=== PATIENT | female | born 2005 | race Two or more races ===

== ENCOUNTER 2025-07-21 20:21 | Inpatient (IN) | payer MEDICAID ==
[~2025-07-21] VITALS: Ht 157.5 cm; Wt 55.4 kg
[2025-07-21] MEDS: IOHEXOL 300 MG/ML 100ML BOTTLE IJ ONE (00:31)
--- NOTE | 2025-07-21 20:53 | ED.PDOC ---
SOB-HPI HPI Comments 20y F presents to the ED for chief complaint of flu-like symptoms - pt states she has been having cough, congestion, headache, fever, chills, body aches, and generalized weakness and malaise for the past 4x days - pt states she took ibuprofen 2x days prior for her symptoms but has since not taken anything - pt otherwise denies sick contacts or changes to diet - pt in the ED, has noted temp of 100.9 with otherwise stable vitals - pt denies any other symptoms at this time . Patient denies . Denies bleeding from anywhere. past medical history: denies past surgical history: denies medications: denies allergies: denies social history: denies ETOH use, denies drug use, denies tobacco use, HPI: Poor Historian. REVIEW OF SYSTEMS: CONSTITUTIONAL: Denies acute: diaphoresis, chills, HEAD: Denies acute: photophobia Eyes: Denies acute: Double vision, vision loss, eye pain, eye discharge. EARS: Denies acute: tinnitus, hearing loss, ear discharge, ear pain, THROAT: Denies acute: sore throat, swelling, difficulty swallowing , pain with swallowing, change in voice. NECK: Denies acute: neck pain, neck swelling, stiff neck. HEART: Denies acute : chest pain, palpitations, LUNGS: Denies acute: SOB, wheezing, hemoptysis ABDOMEN: Denies acute: abdominal pain, Nausea, Vomiting, diarrhea, melena , hematemesis, hematochezia SKIN: Denies acute: rash, redness, lesions, itchiness. EXTREMITIES: Denies acute: calf pain, numbness, tingling, weakness, denies pain in extremity. Denies acute: Low back pain. Neuro: Denies acute: focal neurological deficit, motor or sensory focal neurological deficit, tremors, seizure like activity, confusion, dizziness, change in mental status, loss of bowel or bladder function, cauda equina like symptoms. : Denies acute: dysuria, hematuria, flank pain, increase in urinary frequency. PSYCH: Denies acute: hallucination, suicidal ideation, homicidal ideation. FEMALE: Denies acute: abnormal vaginal bleeding, foul odor, unusual discharge. PHYSICAL EXAM: General: -----mild---acute distress, awake and alert. Head: normocephalic, atraumatic. No raccoon's eyes, no dunaway sign. Neck: supple, trachea is midline, no swelling. Mild Submandibular lymphadenopathy. Throat: Normal phonation. No erythema, no exudates, no obstruction, no drooling, Eyes:, no erythema, no purulent discharge, no proptosis, no icterus. Heart: regular tachy, no significant murmur appreciated. Lungs: no apparent respiratory distress, Able to speak in full sentences. No wheezing, no rhonchi, no crackles. No stridors Clear to auscultation bilaterally. Abdomen: non tender to palpation, non distended, soft, no guarding, no rebound, + bowel sounds. Neuro: Awake, Alert, oriented to name, self, situation, follows commands GCS=15. Speech is normal. Skin: no petechia, no purpura, no cyanosis, non-pale, not jaundice. Lower extremities: --no - Pitting edema no deformity, no focal swelling, no calf TTP. Makes eye contact. moves all four extremities. Face: no apparent facial droop. Ambulating in the ED independently. No nuchal rigidity, Kernig's sign, Brudzinski's sign, no meningeal signs. ED COURSE: DISCLAIMER: This medical document was created using an electronic medical record system with voice recognition software and computerized dictation system. Although this document has been carefully reviewed, there might still be some phonetic and typographical errors. Occasional wrong-word or "sound-alike" substitutions may have occurred due to the inherent limitations of voice recognition software. These areas are purely typographical due to imperfections of the software programs and do not reflect any compromise in the patient's medical care. Please read the chart carefully and recognize, using context, where these substitutions have occurred. Chief Complaint: Flu like Time Seen by MD: 20:52 Reviewed notes: Medications, Allergies Information Source: Patient, Relative (Mother) Mode of Arrival: Ambulatory Brought in by: mother Past Medical History PAST MEDICAL HISTORY: Denies Surgical History: Denies all surgeries PRODUCTION ASSOCIATE History: Denies all PRODUCTION ASSOCIATE Hx Family History Family History: Reviewed,noncontributory to illness Social History Smoker: Non-Smoker Alcohol: Denies ETOH Use Drugs: Denies Drug Use Lives In: Home Was a procedure done? Was a procedure done?: No Differential Dx Differential Diagnosis: Pneumonia, Pulmonary Embolism, Respiratory Distress, Sinusitis, Allergic Rhinitis, URI, Other Comments Sepsis, bacteremia, viral etiology, pneumonia, UTI, X-Ray, Labs, Meds, VS Vital Signs Date Time Temp Pulse Resp B/P (MAP) Pulse Ox O2 Delivery O2 Flow Rate FiO2 07/22/25 00:59 71 20 100 Room Air 07/22/25 00:59 98.5 71 20 97/61 (73) 100 98.5 07/21/25 23:00 98.6 71 20 93/59 (70) 99 98.6 07/21/25 22:00 99.0 07/21/25 21:36 99.5 99.5 07/21/25 21:04 100.2 07/21/25 21:00 100.4 105 20 90/58 (69) 100 100.4 07/21/25 20:24 100.9 98 20 100/74 97 100.9 Lab Test 07/21/25 22:12 07/21/25 21:41 07/21/25 21:20 07/21/25 21:09 Range/Units Urine Test Negative Negative Group A Streptococcus Rapid Negative Urine Color Yellow Yellow Urine Clarity Turbid H Clear Urine pH 8.0 5.0-9.0 Urine Specific [place] 1.028 1.001-1.035 Urine Protein Trace H Negative Urine Ketones 1+ H Negative Urine Blood 1+ H Negative /uL Urine Nitrite Negative Negative Urine Bilirubin Negative Negative Urine Urobilinogen Normal Negative mg/dL Urine Leukocyte Esterase Negative Negative /uL Urine RBC 1 0 - 4 /hpf Urine Microscopic WBC 1 0-5 /HPF Urine Squamous Epithelial Cells Mod <5 /hpf Urine Bacteria Many H None Seen /hpf Urine Hyaline Casts Few 0 - 2 /lpf Urine Mucus Few None Seen Urine Glucose Normal Normal mg/dL Urine Opiates Screen Neg NEGATIVE Urine Fentanyl Screen Neg NEGATIVE Urine Barbiturates Screen Neg NEGATIVE Urine Phencyclidine Screen Neg NEGATIVE Urine Amphetamines Screen Neg NEGATIVE Urine Benzodiazepines Screen Neg NEGATIVE Urine Cocaine Screen Neg NEGATIVE Urine Cannabinoids Screen Pos NEGATIVE Influenza Type A Antigen Negative Negative Influenza Type B Antigen Negative Negative SARS-CoV-2 Antigen (Rapid) Negative NEGATIVE Test 07/21/25 20:54 Range/Units White Blood Count 3.1 L 4.4-10.8 10^3/uL Red Blood Count 4.55 4.0-5.20 10^6/uL Hemoglobin 13.3 12.2-16.2 g/dL Hematocrit 39.1 36.0-46.0 % Mean Corpuscular Volume 85.9 80.0-100.0 fL Mean Corpuscular Hemoglobin 29.3 28.0-32.0 pg Mean Corpuscular Hemoglobin Concent 34.1 32.0-36.0 g/dL Red Cell Distribution Width 13.1 11.8-14.3 % Platelet Count 123 L 140-450 10^3/uL Mean Platelet Volume 8.2 6.9-10.8 fL Neutrophils (%) (Auto) 68.2 37.0-80.0 % Lymphocytes (%) (Auto) 25.3 10.0-50.0 % Monocytes (%) (Auto) 6.3 0.0-12.0 % Eosinophils (%) (Auto) 0.1 0.0-7.0 % Basophils (%) (Auto) 0.1 0.0-2.0 % Neutrophils # (Auto) 2.1 1.6-8.6 10 ^3/uL Lymphocytes # (Auto) 0.8 0.4-5.4 10 ^3/uL Monocytes # (Auto) 0.2 0-1.3 10 ^3/uL Eosinophils # (Auto) 0 0-0.8 10 ^3/uL Basophils # (Auto) 0 0-0.2 10 ^3/uL Nucleated Red Blood Cells 0.0 % Sodium Level 141 136-145 mmol/L Potassium Level 3.5 3.5-5.1 mmol/L Chloride Level 105 98-107 mmol/L Carbon Dioxide Level 26 20-31 mmol/L Anion Gap 10 5-15 Blood Urea Nitrogen 7 L 9-23 mg/dL Creatinine 0.84 0.550-1.02 mg/dL Glomerular Filtration Rate Calc 101 >90 mL/min BUN/Creatinine Ratio 8.3 L 10.0-20.0 Serum Glucose 83 74-106 mg/dL Lactic Acid Level 0.9 0.4-2.0 mmol/L Calcium Level 8.8 8.7-10.4 mg/dL Total Bilirubin 0.4 0.2-1.0 mg/dL Aspartate Amino Transferase (AST) 27 13-40 U/L Alanine Aminotransferase (ALT) 14 7-40 U/L Alkaline Phosphatase 55 46-116 U/L Total Protein 7.5 5.7-8.2 g/dL Albumin 4.5 3.2-4.8 g/dL Monoscreen Negative Microbiology Date/Time Source Procedure Growth Status 07/21/25 21:41 Throat Nose/Throat Culture - Final Complete 07/21/25 21:20 Voided Urine Urine Culture - Final Complete 07/21/25 21:01 Blood Blood Culture - Preliminary NO GROWTH AFTER 72 HOURS OF INCUBATION. Resulted 07/21/25 20:54 Blood Blood Culture - Preliminary NO GROWTH AFTER 72 HOURS OF INCUBATION. Resulted [place] [address] Ph: [phone] DIAGNOSTIC IMAGING Diagnostic Imaging Report : [id number] Signed PATIENT: ELAINE URIBE KACCT: [id number] UNIT: [id number] : 2005 LOC: ER ROOM / BED: / AGE / SEX: 20 / F ADM STATUS: REG ER SERVICE 43 ORDERING PHYSICIAN: BRENDA AMES DO PROCEDURE(s): CXRP - CHEST PORTABLE REASON: fever, cough, flu like ORDER NUMBER(s): [id number], ACCESSION NUMBER(s): [id number] CHEST RADIOGRAPH INDICATION: fever, cough, flu like TECHNIQUE: Single frontal view of the chest was obtained COMPARISON: None FINDINGS: Lines and Tubes: None Lungs: No focal consolidation. Pleura: No effusion. No pneumothorax. Cardiomediastinal contours: Unremarkable Bones: No acute osseous abnormality. IMPRESSION: No acute cardiopulmonary disease. ATED BY: AKILAH JAMES DO DICTATED DATE/TIME: 07/21/252135 SIGNED BY: AKILAH JAMES DO SIGNED DATE/TIME: 07/21/252135 CC: [address] [address] Ph: [phone] DIAGNOSTIC IMAGING Diagnostic Imaging Report : [id number] Signed PATIENT: ELAINE URIBE KACCT: [id number] UNIT: [id number] : 2005 LOC: ER ROOM / BED: / AGE / SEX: 20 / F ADM STATUS: REG ER SERVICE 2324 ORDERING PHYSICIAN: BRENDA AMES DO PROCEDURE(s): ABPLIV - CT AB PEL WITH IV CON ONLY REASON: ABDOMINAL PAIN ORDER NUMBER(s): [id number], ACCESSION NUMBER(s): [id number] EXAM: CT CT AB PEL WITH IV CON ONLY History: ABDOMINAL PAIN COMPARISON: None TECHNIQUE: Multidetector spiral CT of the abdomen and pelvis was performed from lung bases to pubic symphysis. Intravenous contrast was administered during this examination. Portal venous imaging was obtained. Axial, coronal and sagittal multiplanar reformats were performed by the technologist on a separate workstation. Radiation Dose : 1. Abdomen/Pelvis: CTDIvol 6.06 mGy, DLP 345.17 mGy*cm. CONTRAST: Type of contrast: Omniscan 300 Contrast injected: 100 ml FINDINGS: Lung Bases: No acute or significant lung base finding. Normal heart size. No pleural or pericardial effusion. Liver: The liver is normal in size. No focal lesions. Normal hepatic vascular enhancement. Gallbladder and Biliary Tree: Unremarkable Spleen: Unremarkable Pancreas: The pancreas is normal in appearance without focal lesions or abnormal enhancement. Adrenal Glands: Unremarkable Kidneys: No hydronephrosis. Bladder: Unremarkable Bowel: The stomach is grossly normal in appearance. Small bowel and colon are normal in caliber and distribution. The appendix is normal. Ascites: Absent Lymphadenopathy: No mesenteric, retroperitoneal or periportal lymphadenopathy. Abdominal Wall and Mesentery: Unremarkable. Vasculature: The visualized abdominal aorta is normal in size and caliber. Abdominal and pelvic vessels demonstrate normal enhancement. Pelvic Organs: Unremarkable. Likely physiologic endometrial fluid Musculoskeletal: No aggressive focal bony lesions, acute fractures or dislocation. IMPRESSION: 1. No acute abdominal or pelvic finding. Radiation optimization: All CT scans at this facility use at least one of these dose optimization techniques: automated exposure control mA and/or kV adjustment per patient size (includes targeted exams where dose is matched to clinical indication) or iterative reconstruction. ATED BY: GREGORY FOSTER MD DICTATED DATE/TIME: 07/22/2557 SIGNED BY: GREGORY FOSTER MD SIGNED DATE/TIME: 07/22/25 0058 CC: Time of 1ST Reevaluation: 21:30 Reevaluation 1ST: Unchanged Patient Education/Counseling: Diagnosis, Treatment Family Education/Counseling: Diagnosis, Treatment Comments MDM: patient presented with the above HPI.--fever/flu-like symptoms----workup was initiated. patient was found with the above mentioned diagnosis. the following medications were ordered: please refer to order lists of meds and tests obtained by myself Dr. Ames. Patient ED course and VS have been stabilized. Patient has been reassessed in the ED and remained in a stable condition. Pertinent incidental findings were discussed with the patient and/or family. Patient/family voices understanding and is agreeable with plan. Patient has been observed in the ED adequate length of time to insure improvement/stability. Escalation of care considered: Consideration of escalation to observation or admission Patient workup has essentially been unrevealing however patient persists to have fever. Patient was ADMITTED to the medicine team for further evaluation and treatment of their presentation. All the reports of any imaging studies that were ordered by myself were reviewed by myself. SEPSIS Sepsis Screen Date sepsis recognized/suspect: Jul 21, 2025 Time Sepsis recognized/suspect: 2025 Recent Procedure: No On Antibiotic Therapy: No Respiratory Rate >20: No Heart Rate >90: No Temp<36 C (96.8 F) or >38.3 C: No SBP <90 or MAP <65 mmHG: No New Acute Mental Status Change: No Is the patient on CPAP, BIPAP,: No Physician Orders [employer]s And Shoes Supervisor (07/21/25 ) Chest Portable (07/21/25 20:44) Blood Culture (07/21/25 20:44) Ct Ab Pel With Iv Con Only (07/21/25 23:24) Vital Signs Date Time Temp Pulse Resp B/P (MAP) Pulse Ox O2 Delivery O2 Flow Rate FiO2 07/22/25 00:59 71 20 100 Room Air 07/22/25 00:59 98.5 71 20 97/61 (73) 100 98.5 07/21/25 23:00 98.6 71 20 93/59 (70) 99 98.6 07/21/25 22:00 99.0 07/21/25 21:36 99.5 99.5 12/11/25 21:04 100.2 07/21/25 21:00 100.4 105 20 90/58 (69) 100 100.4 07/21/25 20:24 100.9 98 20 100/74 97 100.9 Laboratory Tests Test 07/21/25 20:54 Lactic Acid Level 0.9 mmol/L (0.4-2.0) White Blood Count 3.1 10^3/uL (4.4-10.8) L Departure 1 Departure Time of Disposition: 00:19 Impression: Primary Impression: Fever, unknown origin Disposition: ADMITTED INPATIENT Admit to: Tele Condition: Guarded e-Prescriptions Metronidazole (Flagyl) 500 Mg Tab 1 TAB PO TID for 5 Days, #15 TAB Prov: ELENA MILLER DO 07/24/25 Discharged With: Self Critical Care Note Critical Care Time?: No I personally scribed for BRENDA AMES DO ([email or web address]) on 07/21/25 at 20:53. Electronically submitted by Nelson Cordno ([facility]). I personally scribed for BRENDA AMES DO ([email or web address]) on 07/21/25 at 21:59. Electronically submitted by Nelson Cordon ([facility]). BRENDA AMES DO Jul 21, 2025 20:53
[2025-07-21] MEDS: ACETAMINOPHEN 325 MG TAB PO ONE (21:04)
[2025-07-21] MEDS: ONDANSETRON HCL 4 MG/2 ML VIAL IV ONE (21:10)
[2025-07-21] MEDS: SODIUM CHLORIDE 0.9% 1,000 ML IV ONE ×2 (21:10→21:49)
[2025-07-21 21:13] LABS: Hematocrit 39.1 % (36.0-46.0); Hemoglobin 13.3 g/dL (12.2-16.2); Mean Corpuscular Hemoglobin 29.3 pg (28.0-32.0); Mean Corpuscular Volume 85.9 fL (80.0-100.0); Nucleated Red Blood Cells % 0.0 %
[2025-07-21 21:34] LABS: Alanine Aminotransferase 14 U/L (7-40); Albumin 4.5 g/dL (3.2-4.8); Alkaline Phosphatase 55 U/L (46-116); Anion Gap 10 (5-15); BUN/Creatinine Ratio 8.3 (10.0-20.0); Blood Urea Nitrogen 7 mg/dL (9-23); Calcium 8.8 mg/dL (8.7-10.4); Carbon Dioxide 26 mmol/L (20-31); Chloride 105 mmol/L (98-107); Glucose 83 mg/dL (74-106); Potassium 3.5 mmol/L (3.5-5.1); Sodium 141 mmol/L (136-145); Total Protein 7.5 g/dL (5.7-8.2)
[2025-07-21 21:35] LABS: Bilirubin, Total 0.4 mg/dL (0.2-1.0)
--- NOTE | 2025-07-21 21:38 | DVH ---
CHEST RADIOGRAPH INDICATION: fever, cough, flu like TECHNIQUE: Single frontal view of the chest was obtained COMPARISON: None FINDINGS: Lines and Tubes: None Lungs: No focal consolidation. Pleura: No effusion. No pneumothorax. Cardiomediastinal contours: Unremarkable Bones: No acute osseous abnormality. IMPRESSION: No acute cardiopulmonary disease.
[2025-07-21 21:47] LABS: COVID19 ANTIGEN SOFIA FIA NEGATIVE (NEGATIVE)
[2025-07-21 22:19] LABS: Urine Protein, UAD TRACE (Negative)
[2025-07-21 22:25] LABS: Rapid Strep A Screen-Throat Negative
[2025-07-22] VITALS (7 sets, daily range): BP systolic 93–110; BP diastolic 54–71; PULSE 61–76; RESP 14–18; TEMP 98.2–98.9; O2SAT 96–100
--- NOTE | 2025-07-22 01:01 | DVH ---
EXAM: CT CT AB PEL WITH IV CON ONLY History: ABDOMINAL PAIN COMPARISON: None TECHNIQUE: Multidetector spiral CT of the abdomen and pelvis was performed from lung bases to pubic symphysis. Intravenous contrast was administered during this examination. Portal venous imaging was obtained. Axial, coronal and sagittal multiplanar reformats were performed by the technologist on a separate workstation. Radiation Dose : 1. Abdomen/Pelvis: CTDIvol 6.06 mGy, DLP 345.17 mGy*cm. CONTRAST: Type of contrast: Omniscan 300 Contrast injected: 100 ml FINDINGS: Lung Bases: No acute or significant lung base finding. Normal heart size. No pleural or pericardial effusion. Liver: The liver is normal in size. No focal lesions. Normal hepatic vascular enhancement. Gallbladder and Biliary Tree: Unremarkable Spleen: Unremarkable Pancreas: The pancreas is normal in appearance without focal lesions or abnormal enhancement. Adrenal Glands: Unremarkable Kidneys: No hydronephrosis. Bladder: Unremarkable Bowel: The stomach is grossly normal in appearance. Small bowel and colon are normal in caliber and distribution. The appendix is normal. Ascites: Absent Lymphadenopathy: No mesenteric, retroperitoneal or periportal lymphadenopathy. Abdominal Wall and Mesentery: Unremarkable. Vasculature: The visualized abdominal aorta is normal in size and caliber. Abdominal and pelvic vessels demonstrate normal enhancement. Pelvic Organs: Unremarkable. Likely physiologic endometrial fluid Musculoskeletal: No aggressive focal bony lesions, acute fractures or dislocation. IMPRESSION: 1. No acute abdominal or pelvic finding. Radiation optimization: All CT scans at this facility use at least one of these dose optimization techniques: automated exposure control mA and/or kV adjustment per patient size (includes targeted exams where dose is matched to clinical indication) or iterative reconstruction.
[2025-07-22] MEDS ORDERED: ONDANSETRON HCL 4 MG/2 ML VIAL IV PRN (01:45)
--- NOTE | 2025-07-22 01:53 | DVHHPRES ---
History of Present Illness Resident Creating Document: STUART AMAYA RESIDENT History of Present Illness This is a 20-year-old female with no past medical history came to ER with a complaint of abdominal pain associated with nausea, vomiting, headache, loose stool. Abdominal pain is generalized 6/10 intensity, localized, cramping , no aggravating or relieving factor. Patient visited recently [place] and at street foods after that exhibit symptoms. Patient having vomiting few episode per day for last 3 days but not mixed blood with vomitus. Patient denies any fever, chest pain, SOB, dysuria, or any other focal weakness. Past medical: As above Past surgical history: Nothing contributory Family history: Nothing contributory Personal history: Denies any EtOH or illicit drug use Allergy: No jugular PCP: Candice Snyder Medication: None Review of Systems Constitutional: Yes: Fever, Chills; No: Sweats, Weakness, Malaise, Other Eyes: No: Pain, Vision change, Conjunctivae inflammation, Eyelid inflammation, Other, Redness ENT: No: Ear pain, Ear discharge, Nose pain, Nose discharge, Nose congestion, Mouth pain, Mouth swelling, Throat pain, Throat swelling, Other Respiratory: No: Cough, Dry, Shortness of breath, SOB with excertion, Wheezing, Hemoptysis, Pleuritic Pain, Sputum, Wheezing, Other Cardiovascular: No: Chest Pain, Palpitations, Orthopnea, Paroxysmal Noc. Dyspnea, Edema, Lt Headedness, Other Gastrointestinal: Nausea, Vomiting, Abdominal Pain, Diarrhea; No: Constipation, Melena, Hematochezia, Other Genitourinary: No Dysuria, No Frequency, No Incontinence, No Hematuria, No Retention, No Other Musculoskeletal: No: other, neck pain, shoulder pain, arm pain, back pain, hand pain, leg pain, foot pain Skin: No: Rash, Lesions, Jaundice, Bruising, Other Neurological: No: Weakness, Numbness, Incoordination, Change in speech, Confusion, Seizures, Other Allergies: Coded Allergies: No Known Drug Allergy (Verified Allergy, Unknown, 07/21/25) Exam Vital Signs Vital Signs Date Time Temp Pulse Resp B/P (MAP) Pulse Ox O2 Delivery O2 Flow Rate FiO2 07/22/25 00:59 71 20 100 Room Air 07/22/25 00:59 98.5 97/61 (73) 98.5 General Appearance: Alert, Oriented X3, Cooperative, No acute distress HEENT: Atraumatic, PERRLA, EOMI, Mucous membr. moist/pink Respiratory: Clear to auscultation, Normal air movement Cardiovascular: Regular rate, Normal S1, Normal S2, No murmurs Abdominal: Normal bowel sounds, Soft, Other (Abdomen tender on deep palpation especially lower abdomen and left lower quadrant) Extremities: No clubbing, No cyanosis, Normal pulses Skin: No rashes, No breakdown, No significant lesion Neuro: Normal speech, Strength at 5/5 X4 ext Labs/Xrays Labs Test 07/21/25 22:12 07/21/25 21:41 07/21/25 21:20 07/21/25 21:09 Range/Units Urine Test Negative Negative Group A Streptococcus Rapid Negative Urine Color Yellow Yellow Urine Clarity Turbid H Clear Urine pH 8.0 5.0-9.0 Urine Specific Boyd 1.028 1.001-1.035 Urine Protein Trace H Negative Urine Ketones 1+ H Negative Urine Blood 1+ H Negative /uL Urine Nitrite Negative Negative Urine Bilirubin Negative Negative Urine Urobilinogen Normal Negative mg/dL Urine Leukocyte Esterase Negative Negative /uL Urine RBC 1 0 - 4 /hpf Urine Microscopic WBC 1 0-5 /HPF Urine Squamous Epithelial Cells Mod <5 /hpf Urine Bacteria Many H None Seen /hpf Urine Hyaline Casts Few 0 - 2 /lpf Urine Mucus Few None Seen Urine Glucose Normal Normal mg/dL Influenza Type A Antigen Negative Negative Influenza Type B Antigen Negative Negative SARS-CoV-2 Antigen (Rapid) Negative NEGATIVE Test 07/21/25 20:54 Range/Units White Blood Count 3.1 L 4.4-10.8 10^3/uL Red Blood Count 4.55 4.0-5.20 10^6/uL Hemoglobin 13.3 12.2-16.2 g/dL Hematocrit 39.1 36.0-46.0 % Mean Corpuscular Volume 85.9 80.0-100.0 fL Mean Corpuscular Hemoglobin 29.3 28.0-32.0 pg Mean Corpuscular Hemoglobin Concent 34.1 32.0-36.0 g/dL Red Cell Distribution Width 13.1 11.8-14.3 % Platelet Count 123 L 140-450 10^3/uL Mean Platelet Volume 8.2 6.9-10.8 fL Neutrophils (%) (Auto) 68.2 37.0-80.0 % Lymphocytes (%) (Auto) 25.3 10.0-50.0 % Monocytes (%) (Auto) 6.3 0.0-12.0 % Eosinophils (%) (Auto) 0.1 0.0-7.0 % Basophils (%) (Auto) 0.1 0.0-2.0 % Neutrophils # (Auto) 2.1 1.6-8.6 10 ^3/uL Lymphocytes # (Auto) 0.8 0.4-5.4 10 ^3/uL Monocytes # (Auto) 0.2 0-1.3 10 ^3/uL Eosinophils # (Auto) 0 0-0.8 10 ^3/uL Basophils # (Auto) 0 0-0.2 10 ^3/uL Nucleated Red Blood Cells 0.0 % Sodium Level 141 136-145 mmol/L Potassium Level 3.5 3.5-5.1 mmol/L Chloride Level 105 98-107 mmol/L Carbon Dioxide Level 26 20-31 mmol/L Anion Gap 10 5-15 Blood Urea Nitrogen 7 L 9-23 mg/dL Creatinine 0.84 0.550-1.02 mg/dL Glomerular Filtration Rate Calc 101 >90 mL/min BUN/Creatinine Ratio 8.3 L 10.0-20.0 Serum Glucose 83 74-106 mg/dL Lactic Acid Level 0.9 0.4-2.0 mmol/L Calcium Level 8.8 8.7-10.4 mg/dL Total Bilirubin 0.4 0.2-1.0 mg/dL Aspartate Amino Transferase (AST) 27 13-40 U/L Alanine Aminotransferase (ALT) 14 7-40 U/L Alkaline Phosphatase 55 46-116 U/L Total Protein 7.5 5.7-8.2 g/dL Albumin 4.5 3.2-4.8 g/dL Monoscreen Negative SEPSIS Sepsis Screen Date sepsis recognized/suspect: Jul 21, 2025 Time Sepsis recognized/suspect: 2109 Recent Procedure: No On Antibiotic Therapy: No Respiratory Rate >20: No Heart Rate >90: Yes Temp<36 C (96.8 F) or >38.3 C: Yes SBP <90 or MAP <65 mmHG: No New Acute Mental Status Change: No Is the patient on CPAP, BIPAP,: No Physician Orders Camera Systems Engineer (07/21/25 ) Chest Portable (07/21/25 20:44) Blood Culture (07/21/25 20:44) Ct Ab Pel With Iv Con Only (07/21/25 23:24) Admit (07/22/25 01:33) Code Status (07/22/25 01:33) Sodium Chloride 0.9% (07/22/25 01:45) Enoxaparin Sodium (Lovenox) (07/22/25 10:00) Notify Md Of Changes From Base (07/22/25 01:33) Ceftriaxone Ivpb Rocephin (07/22/25 09:00) Ceftriaxone Ivpb Rocephin (07/22/25 01:45) Metronidazole Ivpb Flagyl (07/22/25 06:00) Metronidazole Ivpb Flagyl (07/22/25 01:45) Ketorolac Injection (Toradol Injection) (07/22/25 01:45) Ondansetron Hcl (Zofran) (07/22/25 01:45) Stool Bacterial Culture (07/22/25 01:33) Stool Wbc (07/22/25 01:33) Ova & Parasite Exam (07/22/25 01:33) Vital Signs Date Time Temp Pulse Resp B/P (MAP) Pulse Ox O2 Delivery O2 Flow Rate FiO2 07/22/25 00:59 71 20 100 Room Air 07/22/25 00:59 98.5 71 20 97/61 (73) 100 98.5 07/21/25 23:00 98.6 71 20 93/59 (70) 99 98.6 07/21/25 22:00 99.0 07/21/25 21:36 99.5 99.5 07/21/25 21:04 100.2 07/21/25 21:00 100.4 105 20 90/58 (69) 100 100.4 07/21/25 20:24 100.9 98 20 100/74 97 100.9 Laboratory Tests Test 07/21/25 20:54 Lactic Acid Level 0.9 mmol/L (0.4-2.0) White Blood Count 3.1 10^3/uL (4.4-10.8) L Medications Medications Dose Ordered Sig/Anailsa Route Start Time Stop Time Status Last Admin Dose Admin Acetaminophen 650 mg ONCE ONCE PO 07/21/25 20:30 07/21/25 20:31 DC 07/21/25 21:04 650 MG Ceftriaxone Sodium 50 ml @ 100 mls/hr ONCE ONCE IV 07/21/25 21:45 07/21/25 22:14 DC 07/21/25 21:49 100 MLS/HR Ondansetron HCl 8 mg ONCE ONCE IV 07/21/25 20:45 07/21/25 20:46 DC 07/21/25 21:10 8 MG Sodium Chloride 1,000 ml @ 1,000 mls/hr Q1H ONCE IV 07/21/25 20:45 07/21/25 21:44 DC 07/21/25 21:10 1,000 MLS/HR Sodium Chloride 1,000 ml @ 1,000 mls/hr Q1H ONCE IV 07/21/25 21:45 07/21/25 22:44 DC 07/21/25 21:49 1,000 MLS/HR Assessment/Plan Assessment/Plan Sepsis secondary likely acute gastroenteritis Acute gastroenteritis viral/bacterial Patient came with GI symptoms Vital: Temperature 100.4, tachycardia , BP 93/59 In ER patient received ceftriaxone, NSS, ondansetron, acetaminophen. Leukopenia WBC 3.1 CT abdomen with IV contrast: No good abdominal or pelvic finding. Blood culture stool cx COVID-19: Negative Influenza a and B: Negative Rapid streptococcal test: Negative CXR: No acute cardiopulmonary disease IVF Ketorolac Empiric antibiotic ceftriaxone and metronidazole Stool culture, WBC, Monitor labs Thrombocytopenia Platelet 123 CBC Diet: NPO, deescalate accordingly GI prophylaxis: Pantoprazole Due to immobilization: Enoxaparin More than 23 minute spent with patient. Goals of care discussion. Full code status. Case discussed with Dr. Jaimes Plan discussed with: Patient, Other (Nurse, mother's) My Orders Orders - STUART AMAYA RESIDENT Procedure Category Date Status Time Admit ADMIT 07/22/25 Transmitted 01:33 Code Status CODE 07/22/25 Transmitted 01:33 Sodium Chloride 0.9% PHA 07/22/25 Logged 01:45 Enoxaparin Sodium PHA 07/22/25 Logged (Lovenox) 10:00 Notify Of Changes WAYNE 07/22/25 In Process From Base 01:33 Ceftriaxone Ivpb PHA 07/22/25 Transmitted Rocephin 09:00 Ceftriaxone Ivpb PHA 07/22/25 Transmitted Rocephin 01:45 Metronidazole Ivpb PHA 07/22/25 Transmitted Flagyl 06:00 Metronidazole Ivpb PHA 07/22/25 Transmitted Flagyl 01:45 Ketorolac Injection PHA 07/22/25 Transmitted (Toradol Injection) 01:45 Ondansetron Hcl PHA 07/22/25 Transmitted (Zofran) 01:45 Stool Bacterial CHERYL 07/22/25 Transmitted Culture 01:33 Stool Wbc LAB 07/22/25 Transmitted 01:33 Ova & Parasite Exam CHERYL 07/22/25 Transmitted 01:33 Visit Coding STANDARD RES Billing Provider: KOREY JAIMES MD Date of Service if different f: Jul 22, 2025 Common Visit Codes: [id number] INP/OBS CARE (HIGH) Secondary Visit Codes: [id number] CARE PLAN 30 MINUTES STUART AMAYA RESIDENT Jul 22, 2025 01:53
[2025-07-22] MEDS ORDERED: IBU600T PO (05:58)
[2025-07-22] MEDS: SODIUM CHLORIDE 0.9% 1,000 ML IV SCH (08:03)
[2025-07-22] MEDS: KETOROLAC TROMETH 30 MG/ML 1ML VIAL IV PRN (08:16)
[2025-07-22 08:55] LABS: Potassium 3.5 mmol/L (3.5-5.1); Sodium 140 mmol/L (136-145)
[2025-07-22 08:56] LABS: Anion Gap 9 (5-15); Carbon Dioxide 24 mmol/L (20-31)
[2025-07-22 08:58] LABS: Hematocrit 33.8 % (36.0-46.0); Hemoglobin 11.3 g/dL (12.2-16.2); Mean Corpuscular Hemoglobin 28.8 pg (28.0-32.0); Mean Corpuscular Volume 85.9 fL (80.0-100.0)
[2025-07-22 09:01] LABS: Glucose 80 mg/dL (74-106); Magnesium 1.9 mg/dL (1.6-2.6)
[2025-07-22 09:02] LABS: BUN/Creatinine Ratio 7.8 (10.0-20.0); Blood Urea Nitrogen < 5 mg/dL (9-23); Calcium 8.0 mg/dL (8.7-10.4); Chloride 107 mmol/L (98-107)
[2025-07-22 09:21] LABS: RBC Morphology Normal; Total Cells Counted 100.0 (100)
[2025-07-22] MEDS: ENOXAPARIN SOD 40 MG/0.4 ML SYRINGE SC SCH (10:00)
--- NOTE | 2025-07-22 11:43 | DVHPNRES ---
Progress Note Date Seen: Jul 22, 2025 Resident Creating Document: DARIEL HWANG RESIDENT Medical Necessity Reason Pt with a Central, PICC or Fol: No Subjective Review of Systems Chelsey Aaron a 20-year-old female with no relevant past medical history who came with complaints of headache, vomiting, fever, body ache and abdominal pain. She rates the abdominal pain 8 on 10 in intensity, radiating to the left lower quadrant. She complains of associated 5 episodes of vomiting and 1 day of diarrhea. She reports that she has not Eaten solid food for the past 3 days. And that she has been having soap. Patient states that she went out of town for the weekend, had food from outside and the symptoms started after she got back home. She also complains of abdominal pain episodes every week with alternating diarrhea and constipation. She reports that her periods are irregular. PMHx:no relevant past medical history PSHx: nonrelevant Family history: nonrelevant Social history: patient is a social media developer student, lives with parents denies smoking or alcohol or drug abuse Home medication: none Allergic history: no known allergies General: patient denies fever, fatigue, weaknes, sweating, any recent changes in appetite and weight. Complains of body pain HEENT: No headaches, visiual changes, hearing loss, tinnitus, nasal congestion and discharge, and sore throat. Cardiovascular: Denies chest pain, palpitations, dyspnea on exertion, orthopnea, or claudication. Respiratory: No cough, and wheezing. Gastrointestinal: complains of abdominal pain, nausea Genitourinary: No dysuria, hematuria, discharge, frequency, urgency, nocturia, incontinence, and urinary retention. Endocrine: No heat or cold intolerance, polydipsia, polyuria, and polyphagia. Neurological: No dizziness, extremity weakness and numbness, tremors, gait disturbance, seizures, and memory impairment. Psychiatric: Denies depression, anxiety,or insomnia. Musculoskeletal: Denies neck pain, stiffness and swelling, back pain, muscle weakness, joint pain, stiffness, swelling, or limited range of motion. Skin: No rashes, itching, skin lesion, changes in hair, nail, skin texture and breast. Hematologic/Lymphatic: Denies easy bruising, bleeding tendencies, or lymph node enlargement. Objective vital signs Vital Sign Date Time Temp Pulse Resp B/P (MAP) Pulse Ox O2 Delivery O2 Flow Rate FiO2 12/12/25 09:00 98.9 76 17 94/54 (67) 96 98.9 07/22/25 08:00 Room Air* 0 21 Total Intake and Output 07/21/25 07/21/25 07/22/25 15:00 23:00 07:00 Intake Total 2050 ml 20 ml Balance 2050 ml 20 ml medications Current Medications Medications Dose Ordered Sig/Analisa Route Start Time Stop Time Status Last Admin Dose Admin Sodium Chloride 1,000 ml @ 100 mls/hr Q10H IV 07/22/25 01:45 07/22/25 08:03 100 MLS/HR Enoxaparin Sodium 40 mg DAILY SC 07/22/25 10:00 Ceftriaxone Sodium 50 ml @ 100 mls/hr Q24H IV 07/22/25 22:00 Metronidazole 100 ml @ 100 mls/hr Q8H IV 07/22/25 10:00 07/22/25 09:45 100 MLS/HR Ketorolac Tromethamine 15 mg Q6HPRN PRN IV 07/22/25 01:45 07/27/25 01:44 07/22/25 08:16 15 MG Ondansetron HCl 4 mg Q8HPRN PRN IV 07/22/25 01:45 Ergocalciferol 50,000 unit Q7D PO 07/22/25 11:45 UNV Examination General Appearance: Alert, Oriented X3, Cooperative, No acute distress HEENT: Atraumatic, PERRLA, EOMI, Mucous membrane moist/pink Respiratory: Clear to auscultation, Normal air movement Cardiovascular: Regular rate, Normal S1, Normal S2, No murmurs, no chest wall tenderness Abdominal: tenderness in the umbilical area Extremities: No clubbing, No cyanosis, No edema, Normal pulses, No tenderness/swelling Skin: No rashes, No breakdown, No significant lesion Neuro: Normal gait, Normal speech, Strength at 5/5 X4 ext, Normal tone, Sensation intact, Cranial nerves 3-12 NL, Reflexes 2+ Psych/Mental Status: Mental status NL, Mood NL Examination: GENERAL:Normal, HEENT:Normal, NECK:Normal, LUNGS:Normal laboratory and microbiology Laboratory Tests 07/22/25 08:15 Test 07/22/25 08:15 Range/Units Serum Glucose 80 74-106 mg/dL Microbiology Date/Time Source Procedure Growth Status 07/21/25 21:41 Throat Nose/Throat Culture - Preliminary Resulted Labs and/or images reviewed: Labs reviewed by me, Image(s) reviewed by me Problem List/Assessment/Plan Problem List/Assessment/Plan Assessment/Plan Sepsis secondary to acute gastroenteritis Acute gastroenteritis viral/bacterial infection Acute complicated urinary tract infection Neutropenia Patient came with GI symptoms Vital: Temperature 100.4, tachycardia , BP 93/59 In ER patient received ceftriaxone, NSS, ondansetron, acetaminophen. Leukopenia WBC 3.1 CT abdomen with IV contrast: No good abdominal or pelvic finding. Blood culture stool cx COVID-19: Negative Influenza a and B: Negative Rapid streptococcal test: Negative CXR: No acute cardiopulmonary disease IVF Ketorolac Empiric antibiotic ceftriaxone and metronidazole Stool culture, WBC, Monitor labs Follow urine culture Possible irritable bowel syndrome Follow up with PCP on discharge Vitamin-D deficiency Vitamin-D 30739 units once weekly for 8 weeks Hypocalcemia Follow calcium levels Thrombocytopenia Platelet 123 CBC Diet: Full liquid diet GI prophylaxis: Pantoprazole Due to immobilization: Enoxaparin Goals of care Full code status. Case discussed with Dr. Miller Plan discussed with: Patient My Orders My Orders Orders - DARIEL HWANG RESIDENT Procedure Category Date Status Time Ergocalciferol PHA 07/22/25 Logged (Vitamin D 50,000 11:45 Full Liq Diet DIET 07/22/25 Transmitted Lunch Date of Service: Jul 22, 2025 Billing Provider: ELENA MILLER DO Common Visit Codes: [id number] INP/OBS CARE(HIGH) DARIEL HWANG RESIDENT Jul 22, 2025 11:43 ELENA MILLER DO Aug 24, 2025 14:20
[2025-07-22 13:03] LABS: Amphetamine Screen, Urine Neg (NEGATIVE); Barbiturate Scree,Urine Neg (NEGATIVE); Benzodiazephine Screen, Urine Neg (NEGATIVE); Cannabinoid Screen, Urine Pos (NEGATIVE); Cocaine Screen, Urine Neg (NEGATIVE); Opiate Scree,Urine Neg (NEGATIVE); Phencyclidine Screen, Urine Neg (NEGATIVE)
[2025-07-22] MEDS: ERGOCALCIFEROL 50,000 UNIT(1.25MG) CAP PO SCH (13:42)
[2025-07-23] VITALS (8 sets, daily range): BP systolic 100–106; BP diastolic 63–73; PULSE 50–82; RESP 16–18; TEMP 97.4–98.7; O2SAT 96–99
[2025-07-23 05:26] LABS: Hematocrit 34.1 % (36.0-46.0); Hemoglobin 11.4 g/dL (12.2-16.2); Mean Corpuscular Hemoglobin 28.8 pg (28.0-32.0); Mean Corpuscular Volume 86.0 fL (80.0-100.0)
[2025-07-23 05:33] LABS: Alanine Aminotransferase 17 U/L (7-40); Albumin 3.6 g/dL (3.2-4.8); Alkaline Phosphatase 47 U/L (46-116); Anion Gap 9 (5-15); Carbon Dioxide 25 mmol/L (20-31); Chloride 107 mmol/L (98-107); Potassium 3.6 mmol/L (3.5-5.1); Sodium 141 mmol/L (136-145); Total Protein 5.9 g/dL (5.7-8.2)
[2025-07-23 05:34] LABS: BUN/Creatinine Ratio 7.6 (10.0-20.0); Bilirubin, Total 0.2 mg/dL (0.2-1.0); Blood Urea Nitrogen < 5 mg/dL (9-23); Calcium 8.2 mg/dL (8.7-10.4); Glucose 74 mg/dL (74-106)
[2025-07-23 05:46] LABS: Total Cells Counted 100.0 (100)
[2025-07-23] MEDS ORDERED: ERGOCALCIFEROL 50,000 UNIT(1.25MG) CAP PO SCH (09:45)
--- NOTE | 2025-07-23 15:39 | DVHPNRES ---
Progress Note Date Seen: Jul 23, 2025 Resident Creating Document: DARIEL HWANG RESIDENT Medical Necessity Reason Pt with a Central, PICC or Fol: No Subjective Review of Systems Patient seen at bedside. Reports improvement in symptoms. Planes of mild abdominal pain. No episodes of vomiting or diarrhea. On full liquid diet. Chelsey Aaron a 20-year-old female with no relevant past medical history who came with complaints of headache, vomiting, fever, body ache and abdominal pain. She rates the abdominal pain 8 on 10 in intensity, radiating to the left lower quadrant. She complains of associated 5 episodes of vomiting and 1 day of diarrhea. She reports that she has not Eaten solid food for the past 3 days. And that she has been having soap. Patient states that she went out of town for the weekend, had food from outside and the symptoms started after she got back home. She also complains of abdominal pain episodes every week with alternating diarrhea and constipation. She reports that her periods are irregular. PMHx:no relevant past medical history PSHx: nonrelevant Family history: nonrelevant Social history: patient is a social insurance specialist student, lives with parents denies smoking or alcohol or drug abuse Home medication: none Allergic history: no known allergies General: patient denies fever, fatigue, weaknes, sweating, any recent changes in appetite and weight. Complains of body pain HEENT: No headaches, visiual changes, hearing loss, tinnitus, nasal congestion and discharge, and sore throat. Cardiovascular: Denies chest pain, palpitations, dyspnea on exertion, orthopnea, or claudication. Respiratory: No cough, and wheezing. Gastrointestinal: complains of abdominal pain, nausea Genitourinary: No dysuria, hematuria, discharge, frequency, urgency, nocturia, incontinence, and urinary retention. Endocrine: No heat or cold intolerance, polydipsia, polyuria, and polyphagia. Neurological: No dizziness, extremity weakness and numbness, tremors, gait disturbance, seizures, and memory impairment. Psychiatric: Denies depression, anxiety,or insomnia. Musculoskeletal: Denies neck pain, stiffness and swelling, back pain, muscle weakness, joint pain, stiffness, swelling, or limited range of motion. Skin: No rashes, itching, skin lesion, changes in hair, nail, skin texture and breast. Hematologic/Lymphatic: Denies easy bruising, bleeding tendencies, or lymph node enlargement. Objective vital signs Vital Sign Date Time Temp Pulse Resp B/P (MAP) Pulse Ox O2 Delivery O2 Flow Rate FiO2 07/23/25 12:37 98.4 69 16 102/73 (83) 98 98.4 07/23/25 08:00 Room Air* 0 21 Total Intake and Output 07/22/25 07/22/25 07/23/25 15:00 23:00 07:00 Intake Total 850 ml 550 ml Balance 850 ml 550 ml medications Current Medications Medications Dose Ordered Sig/Analisa Route Start Time Stop Time Status Last Admin Dose Admin Sodium Chloride 1,000 ml @ 100 mls/hr Q10H IV 07/22/25 01:45 07/23/25 09:51 100 MLS/HR Ceftriaxone Sodium 50 ml @ 100 mls/hr Q24H IV 07/22/25 22:00 07/22/25 21:05 100 MLS/HR Metronidazole 100 ml @ 100 mls/hr Q8H IV 07/22/25 10:00 07/23/25 09:51 100 MLS/HR Ketorolac Tromethamine 15 mg Q6HPRN PRN IV 07/22/25 01:45 07/27/25 01:44 07/22/25 08:16 15 MG Ondansetron HCl 4 mg Q8HPRN PRN IV 07/22/25 01:45 Ergocalciferol 50,000 unit Q7D PO 07/22/25 11:45 07/22/25 13:42 50,000 UNIT Examination General Appearance: Alert, Oriented X3, Cooperative, No acute distress HEENT: Atraumatic, PERRLA, EOMI, Mucous membrane moist/pink Respiratory: Clear to auscultation, Normal air movement Cardiovascular: Regular rate, Normal S1, Normal S2, No murmurs, no chest wall tenderness Abdominal: tenderness in the umbilical area Extremities: No clubbing, No cyanosis, No edema, Normal pulses, No tenderness/swelling Skin: No rashes, No breakdown, No significant lesion Neuro: Normal gait, Normal speech, Strength at 5/5 X4 ext, Normal tone, Sensation intact, Cranial nerves 3-12 NL, Reflexes 2+ Psych/Mental Status: Mental status NL, Mood NL Examination: GENERAL:Normal, HEENT:Normal, NECK:Normal, LUNGS:Normal laboratory and microbiology Laboratory Tests 07/23/25 04:40 Test 07/23/25 04:40 Range/Units Serum Glucose 74 74-106 mg/dL Microbiology Date/Time Source Procedure Growth Status 07/21/25 21:41 Throat Nose/Throat Culture - Preliminary Resulted 07/21/25 21:20 Voided Urine Urine Culture - Preliminary No growth Resulted 07/21/25 21:01 Blood Blood Culture - Preliminary NO GROWTH AFTER 24 HOURS OF INCUBATION. Resulted Labs and/or images reviewed: Labs reviewed by me, Image(s) reviewed by me Problem List/Assessment/Plan Problem List/Assessment/Plan Assessment/Plan Sepsis secondary to acute gastroenteritis Acute gastroenteritis viral/bacterial infection Acute complicated urinary tract infection Neutropenia Patient came with GI symptoms Vital: Temperature 100.4, tachycardia , BP 93/59 In ER patient received ceftriaxone, NSS, ondansetron, acetaminophen. Leukopenia WBC 3.1 CT abdomen with IV contrast: No good abdominal or pelvic finding. Blood culture stool cx COVID-19: Negative Influenza a and B: Negative Rapid streptococcal test: Negative CXR: No acute cardiopulmonary disease IVF Ketorolac Empiric antibiotic ceftriaxone and metronidazole Stool culture, WBC, Monitor labs Follow urine culture Possible irritable bowel syndrome Follow up with PCP on discharge Vitamin-D deficiency Vitamin-D 70292 units once weekly for 8 weeks Hypocalcemia Follow calcium levels Thrombocytopenia Platelet 123 CBC Diet: Full liquid diet GI prophylaxis: Pantoprazole Due to immobilization: Enoxaparin Goals of care Full code status. Case discussed with Dr. Miller Plan discussed with: Patient My Orders My Orders Orders - DARIEL HWANG RESIDENT Procedure Category Date Status Time Complete Blood Count LAB 07/24/25 Verified 04:00 Comprehensive LAB 07/24/25 Verified Metabolic Panel 04:00 Date of Service: Jul 23, 2025 Billing Provider: ELENA MILLER DO Common Visit Codes: [id number] INP/OBS CARE(HIGH) DARIEL HWANG RESIDENT Jul 23, 2025 15:39 ELENA MILLER DO Aug 24, 2025 14:20
[2025-07-24] VITALS (7 sets, daily range): BP systolic 92–101; BP diastolic 61–71; PULSE 37–74; RESP 16–17; TEMP 36.4; O2SAT 96–99
[2025-07-24 04:58] LABS: Hematocrit 36.0 % (36.0-46.0); Hemoglobin 12.0 g/dL (12.2-16.2); Mean Corpuscular Hemoglobin 28.6 pg (28.0-32.0); Mean Corpuscular Volume 85.5 fL (80.0-100.0)
[2025-07-24 05:19] LABS: Alanine Aminotransferase 20 U/L (7-40); Albumin 3.8 g/dL (3.2-4.8); Anion Gap 9 (5-15); Carbon Dioxide 26 mmol/L (20-31); Chloride 106 mmol/L (98-107); Glucose 79 mg/dL (74-106); Potassium 3.6 mmol/L (3.5-5.1); Sodium 141 mmol/L (136-145); Total Protein 6.2 g/dL (5.7-8.2)
[2025-07-24 05:25] LABS: Total Cells Counted 100.0 (100)
[2025-07-24 05:26] LABS: Alkaline Phosphatase 45 U/L (46-116); BUN/Creatinine Ratio 8.1 (10.0-20.0); Bilirubin, Total 0.3 mg/dL (0.2-1.0); Blood Urea Nitrogen < 5 mg/dL (9-23); Calcium 8.4 mg/dL (8.7-10.4)
[2025-07-24] MEDS ORDERED: METR-344 PO (16:09)
--- NOTE | 2025-07-25 | DVHDS2 ---
Discharge Summary Date of Admission Jul 22, 2025 at 01:33 Date of Discharge: Jul 24, 2025 Labs/Diagnostic Data: Laboratory Results Test 07/24/25 04:38 07/22/25 10:00 07/22/25 08:15 07/21/25 22:12 White Blood Count 2.4 10^3/uL (4.4-10.8) Red Blood Count 4.20 10^6/uL (4.0-5.20) Hemoglobin 12.0 g/dL (12.2-16.2) Hematocrit 36.0 % (36.0-46.0) Mean Corpuscular Volume 85.5 fL (80.0-100.0) Mean Corpuscular Hemoglobin 28.6 pg (28.0-32.0) Mean Corpuscular Hemoglobin Concent 33.4 g/dL (32.0-36.0) Red Cell Distribution Width 13.1 % (11.8-14.3) Platelet Count 95 10^3/uL (140-450) Mean Platelet Volume 8.3 fL (6.9-10.8) Neutrophils (%) (Auto) % (37.0-80.0) Lymphocytes (%) (Auto) % (10.0-50.0) Monocytes (%) (Auto) % (0.0-12.0) Basophils (%) (Auto) % (0.0-2.0) Neutrophils # (Auto) 10 ^3/uL (1.6-8.6) Lymphocytes # (Auto) 10 ^3/uL (0.4-5.4) Monocytes # (Auto) 10 ^3/uL (0-1.3) Differential Total Cells Counted 100.0 (100) Neutrophils % (Manual) 20 (37.0-80.0) Band Neutrophils % (Manual) 3 Lymphocytes % (Manual) 68 (10.0-50.0) Monocytes % (Manual) 8 (0-12) Eosinophils % (Manual) 0 (0-7) Basophils % (Manual) 0 (0.0-2.0) Metamyelocytes % (manual) 0 Myelocytes % (Manual) 0 Promyelocytes % (Manual) 0 Blast Cells % (Manual) 0 Reactive Lymphocytes 1 Platelet Estimate Decreased Sodium Level 141 mmol/L (136-145) Potassium Level 3.6 mmol/L (3.5-5.1) Chloride Level 106 mmol/L (98-107) Carbon Dioxide Level 26 mmol/L (20-31) Anion Gap 9 (5-15) Blood Urea Nitrogen < 5 mg/dL (9-23) Creatinine 0.62 mg/dL (0.550-1.02) Glomerular Filtration Rate Calc 130 mL/min (>90) BUN/Creatinine Ratio 8.1 (10.0-20.0) Serum Glucose 79 mg/dL (74-106) Calcium Level 8.4 mg/dL (8.7-10.4) Total Bilirubin 0.3 mg/dL (0.2-1.0) Aspartate Amino Transferase (AST) 31 U/L (13-40) Alanine Aminotransferase (ALT) 20 U/L (7-40) Alkaline Phosphatase 45 U/L (46-116) Total Protein 6.2 g/dL (5.7-8.2) Albumin 3.8 g/dL (3.2-4.8) Stool for White Cells None seen Red Blood Cell Morphology Normal Magnesium Level 1.9 mg/dL (1.6-2.6) Vitamin D 25-Hydroxy 11.0 ng/mL (30.0-100) Urine Test Negative (Negative) Test 07/21/25 21:41 07/21/25 21:20 07/21/25 21:09 07/21/25 20:54 Group A Streptococcus Rapid Negative Urine Color Yellow (Yellow) Urine Clarity Turbid (Clear) Urine pH 8.0 (5.0-9.0) Urine Specific [place] 1.028 (1.001-1.035) Urine Protein Trace (Negative) Urine Ketones 1+ (Negative) Urine Blood 1+ /uL (Negative) Urine Nitrite Negative (Negative) Urine Bilirubin Negative (Negative) Urine Urobilinogen Normal mg/dL (Negative) Urine Leukocyte Esterase Negative /uL (Negative) Urine RBC 1 /hpf (0 - 4) Urine Microscopic WBC 1 /HPF (0-5) Urine Squamous Epithelial Cells Mod /hpf (<5) Urine Bacteria Many /hpf (None Seen) Urine Hyaline Casts Few /lpf (0 - 2) Urine Mucus Few (None Seen) Urine Glucose Normal mg/dL (Normal) Urine Opiates Screen Neg (NEGATIVE) Urine Fentanyl Screen Neg (NEGATIVE) Urine Barbiturates Screen Neg (NEGATIVE) Urine Phencyclidine Screen Neg (NEGATIVE) Urine Amphetamines Screen Neg (NEGATIVE) Urine Benzodiazepines Screen Neg (NEGATIVE) Urine Cocaine Screen Neg (NEGATIVE) Urine Cannabinoids Screen Pos (NEGATIVE) Influenza Type A Antigen Negative (Negative) Influenza Type B Antigen Negative (Negative) SARS-CoV-2 Antigen (Rapid) Negative (NEGATIVE) Eosinophils (%) (Auto) 0.1 % (0.0-7.0) Eosinophils # (Auto) 0 10 ^3/uL (0-0.8) Basophils # (Auto) 0 10 ^3/uL (0-0.2) Nucleated Red Blood Cells 0.0 % Lactic Acid Level 0.9 mmol/L (0.4-2.0) Monoscreen Negative Other Laboratory Tests 07/24/25 04:38 Brief Hx & Hospital Course: 19y F who presents to the ED for chief complaint of abdominal pain. Pt states she has been having abdominal pain since earlier this AM. Pt states she has been having associated RUQ abdominal pain radiating to the R flank, rating the pain 6/10, constant, with no associated exacerbating or relieving factors. Pt has associated nausea, vomiting, diarrhea, chills but denies any other symptoms. Pt denies sick contacts or changes to diet. Pt otherwise has stable vitals in the ED. Pt denies or these symptoms in the past. Acute pyelonephritis Polycystic kidney disease Condition at Discharge: Fair Final Diagnosis/Problems List see above Discharge Disposition: Home with Health Services Discharge Instruct/Medications Diet: Cardiac 2g Na,low cholest Activity: No Restrictions, As Tolerated Scheduled Metronidazole (Flagyl), 1 TAB PO TID Scheduled PRN Ibuprofen Micronized (Motrin Tablet), 600 MG PO TID PRN for BREAKTHROUGH PAIN, (Reported) Discharge Statement: "Patient was advised to return to the ER or call 911 if any headaches, dizziness, shortness of breath, chest pain, abdominal pain, bleeding, fevers, or worsening of medical condition. Patient was counseled about treatment plan, medications, possible side effects, patientverbalized understanding. All questions were answered to the best of my ability. This discharge took greater then 30 minutes in planning, reviewing documentation, counseling the patient, and discussing with other team members." ASSESSMENT ASSESSMENT Assessment Date of Service: Jul 24, 2025 Billing Provider: ELENA MILLER DO Common Visit Codes: 68088-XTV/OBS DISCH DAY >30min ELENA MILLER DO Jul 25, 2025 00:00
== END 2025-07-24 18:08 | disposition home or self-care (01) | DRG 720 ==
LOC: ER 20:21 → OVERFLOW 07-22 01:33 → EAST 07-22 14:10
PROVIDERS: ADMIT Internal Medicine; ATTEND Internal Medicine
DX: A41.9 Sepsis, unspecified organism (principal); D70.9 Neutropenia, unspecified; D69.6 Thrombocytopenia, unspecified; A04.9 Bacterial intestinal infection, unspecified; N10 Acute pyelonephritis; Z20.822 Contact with and (suspected) exposure to COVID-19; E83.51 Hypocalcemia; A08.4 Viral intestinal infection, unspecified; K58.9 Irritable bowel syndrome, unspecified
CPT/HCPCS: 36415; 71045; 74177; 80048; 80053; 80307; 81001; 81025; 82306; 83605; 83735; 85007; 85025; 85027; 85048; 86308; 87040; 87045; 87070; 87086; 87177; 87426; 87427; 87804; 87880; 96365; 96375; G0378; J1885; J2405; J3490